=== PATIENT | male | born 1940 | race Caucasian/White ===

== ENCOUNTER 2020-01-09 11:35 | Inpatient (IN) | payer MEDICARE, OTHER ==
[2020-01-04 10:25] LABS: BASOPHILS % 0.3 % (0.0-1.0); EOSINOPHILS # (AUTO) 0.1 (0.0-0.4); EOSINOPHILS % 1.2 % (0.0-6.0); HEMATOCRIT 37.1 % (38.2-49.6); HEMOGLOBIN 12.3 g/dL (14.0-18.0); LYMPHOCYTES # (AUTO) 1.2 (1.0-3.2); LYMPHOCYTES % 17.2 % (18.0-39.1); MEAN CORPUSCULAR HEMOGLOBIN 30.2 pg (28-32); MEAN CORPUSCULAR HGB CONC 33.2 g/dL (31-35); MEAN CORPUSCULAR VOLUME 91.2 fL (81-99); MONOCYTES # (AUTO) 0.8 (0.2-0.8); MONOCYTES % 11.3 % (4.4-11.3); NEUTROPHILS # (AUTO) 4.7 (2.1-6.9); NEUTROPHILS % 69.7 % (38.7-80.0); PLATELET COUNT 230 x10e3/uL (140-360); RED BLOOD COUNT 4.07 x10e6/uL (4.3-5.7); RED CELL DISTRIBUTION WIDTH 13.8 % (11.7-14.4)
[2020-01-04 10:40] LABS: ANION GAP 12.1 mmol/L (8-16); BLOOD UREA NITROGEN 18 mg/dL (7-26); BUN/CREATININE RATIO 22 (6-25); CALCIUM 8.9 mg/dL (8.4-10.2); CARBON DIOXIDE 27 mmol/L (22-29); CHLORIDE 100 mmol/L (98-107); CREATININE, SERUM 0.81 mg/dL (0.72-1.25); EST GLOMERULAR FILTRATION RATE > 60 ML/MIN (60-); GLUCOSE 101 mg/dL (74-118); POTASSIUM 5.1 mmol/L (3.5-5.1); SODIUM 134 mmol/L (136-145)
--- NOTE | 2020-01-04 10:46 | Diagnostic Imaging Report ---
EXAM: CHEST 2 VIEWS DATE: 01/04/2020 9:46 AM INDICATION: Preoperative evaluation COMPARISON: None FINDINGS: The trachea is midline. The lungs are symmetrically expanded without evidence for large focal consolidation, pneumothorax, or significant pleural effusion. The cardiomediastinal silhouette and pulmonary vasculature are within normal limits. Atherosclerotic calcifications are noted within the thoracic aorta. Degenerative changes are noted of the visualized spine. No acute osseous abnormality is identified. IMPRESSION: No acute cardiopulmonary process identified. Signed by: Dr. Chucky Valenzuela MD on 01/04/2020 10:43 AM
[~2020-01-09] VITALS: Ht 180.3 cm; Wt 80.8 kg
[~2020-01-09 11:35] MED LIST: ASPIRIN81 MG PO; FINASTERIDE5 MG PO; FLOMAX0.4 MG PO; LISINOPRIL10 MG PO; LOVASTATIN40 MG PO; MEN'S MULTIVIT1 EACH PO; METFORMIN HCL500 MG PO; PIOGLITAZONE HC45 MG PO
--- OUTSIDE RECORDS SUMMARY | 2020-01-09 11:41 | XMS REPORT ---
[facility] Phone Unavailable Care Team Providers Care Embedded Software Test Engineer Name Role Phone CATHY TURK Unavailable Unavailable Problems This patient has no known problems. Allergies, Adverse Reactions, Alerts This patient has no known allergies or adverse reactions. Medications This patient has no known medications. Results Test Description Test Time Test Comments Text Results Atomic Results Result Comments CHEST 2 VIEWS 2020-01-04 10:41:00 [place] [address] Patient Name: TOBY FERRER MR #: [id number] : 1940 Age/Sex: 79/M Req #: [id number] [facility] Physician: Ordered by: CATHY TURK MD Report #: [id number] Location: OR Room/Bed: Procedure: [id number] DX/CHEST 2 VIEWS Exam Date: 01/04/20 Exam Time: 1000 REPORT STATUS: Signed EXAM: CHEST 2 VIEWS DATE: 01/04/2020 9:46 AM INDICATION: Preoperative evaluation COMPARISON: None FINDINGS: The trachea is midline. The lungs are symmetrically expanded without evidence for large focal consolidation, pneumothorax, or significant pleural effusion. The cardiomediastinal silhouette and pulmonary vasculature are within normal limits. Atherosclerotic calcifications are noted within the thoracic aorta. Degenerative changes are noted of the visualized spine. No acute osseous abnormality is identified. IMPRESSION: No acute cardiopulmonary process identified. Signed by: Dr. Chucky Wolf MD on 01/04/2020 10:43 AM Dictated By: CHUCKY WOLF MD [id number] Transcribed By: RAMIREZ on 01/04/20 104 COPY TO: CATHY TURK MD
[2020-01-09] MEDS ORDERED: CEFTRIAXONE SOD 1 GM/NS 50 ML 50 ML IV ONE (13:31)
[2020-01-09] MEDS ORDERED: GENTAMICIN 80MG/NS 100 ML 100 ML IV ONE (13:31)
[2020-01-09] MEDS ORDERED: IOPAMIDOL 300MG/ML 50ML INFUS..BTL IV ONE (14:35)
[2020-01-09] MEDS ORDERED: B&O 60MG R/S 60 MG SUPP PR ONE (14:35)
[2020-01-09] MEDS ORDERED: LIDOCAINE HCL 2% LOCAL INJ 5 ML SDV VIAL INJ ONE (14:50)
[2020-01-09] MEDS ORDERED: ONDANSETRON HCL INJ 2MG/ML 2ML 2 MG/ML VIAL ONE (14:50)
[2020-01-09] MEDS ORDERED: SEVOFLURANE INHAL SOLN 250 ML PEN BTL ONE (14:50)
[2020-01-09] MEDS ORDERED: PROPOFOL IV EMULSION 10 MG/ML 20 ML VIAL ONE (14:50)
[2020-01-09] MEDS ORDERED: DEXAMETHASONE SOD PHOS INJ 4 MG/ML VIAL ONE (14:50)
[2020-01-09] MEDS ORDERED: CEFTRIAXONE SOD 1 GM VIAL ONE (14:50)
[2020-01-09] MEDS ORDERED: ONDANSETRON HCL INJ 2MG/ML 2ML 2 MG/ML VIAL IV PRN (15:30)
[2020-01-09] MEDS ORDERED: DIPHENHYDRAMINE HCL 25 MG CAP PO PRN (15:30)
[2020-01-09] MEDS ORDERED: ACETAMINOPHEN 1000 MG/100 ML IV PRN (15:30)
[2020-01-09] MEDS ORDERED: ACETAMINOPHEN/CODEINE 300MG - 30MG TAB PO PRN (15:30)
[2020-01-09] MEDS: CEFTRIAXONE SOD 1 GM/NS 50 ML 50 ML IV SCH (15:30)
[2020-01-09] MEDS ORDERED: B&O 60MG R/S 60 MG SUPP PR PRN (15:30)
[2020-01-09] MEDS ORDERED: HYDRALAZINE HCL 20 MG/ML VIAL ONE (17:27)
[2020-01-09] MEDS ORDERED: FENTANYL CITRATE/PF 100MCG/2 ML INJ ONE (17:39)
[2020-01-09 18:43] LABS: BASOPHILS % 0.2 % (0.0-1.0); EOSINOPHILS % 0.1 % (0.0-6.0); HEMATOCRIT 40.7 % (38.2-49.6); HEMOGLOBIN 13.5 g/dL (14.0-18.0); LYMPHOCYTES # (AUTO) 0.4 (1.0-3.2); LYMPHOCYTES % 4.6 % (18.0-39.1); MEAN CORPUSCULAR HEMOGLOBIN 30.3 pg (28-32); MEAN CORPUSCULAR HGB CONC 33.2 g/dL (31-35); MEAN CORPUSCULAR VOLUME 91.3 fL (81-99); MONOCYTES # (AUTO) 0.1 (0.2-0.8); NEUTROPHILS % 93.7 % (38.7-80.0); PLATELET COUNT 236 x10e3/uL (140-360); RED BLOOD COUNT 4.46 x10e6/uL (4.3-5.7); RED CELL DISTRIBUTION WIDTH 13.7 % (11.7-14.4)
[2020-01-09 18:59] LABS: ANION GAP 12.2 mmol/L (8-16); BLOOD UREA NITROGEN 14 mg/dL (7-26); BUN/CREATININE RATIO 17 (6-25); CALCIUM 8.8 mg/dL (8.4-10.2); CARBON DIOXIDE 25 mmol/L (22-29); CHLORIDE 102 mmol/L (98-107); CREATININE, SERUM 0.81 mg/dL (0.72-1.25); EST GLOMERULAR FILTRATION RATE > 60 ML/MIN (60-); GLUCOSE 114 mg/dL (74-118); POTASSIUM 4.2 mmol/L (3.5-5.1); SODIUM 135 mmol/L (136-145)
--- NOTE | 2020-01-09 19:00 | NUR ---
Received the patient in report.aaox3.no resp.distress.no pain voiced.iv to right hand is patent.iv fluid running.on CBI.snacks provided.bed locked and in lowest position.phone and call light within reach.instructed to call for assistance as needed.
[2020-01-09 19:30] VITALS: BP 136/62
[2020-01-09] MEDS: SOD CHL 0.45%/POT CHL 20MEQ 1,000 ML IV SCH (19:37)
[2020-01-09] MEDS: PHENAZOPYRIDINE HCL 100 MG TAB PO SCH (19:49)
[2020-01-09 20:16] VITALS: BP 132/62
[2020-01-09 20:53] VITALS: BP 132/62
[2020-01-09] MEDS ORDERED: DEXTROSE 50% SYRINGE 50 ML IV PRN (21:00)
[2020-01-09] MEDS: INSULIN LISPRO 100 UNIT/1 ML 3ML VIAL SQ SCH (21:15)
--- NOTE | 2020-01-09 21:30 | NUR ---
BLOOD SUGAR 177 NOTIFIED TO .RECEIVED NEW ORDERS.IMPLEMENTED.EDUCATED ABOUT THE SIDE EFFECT OF INSULIN.VERBALIZED UNDERSTANDING.PROVIDED SNACKS.
[2020-01-09 23:50] VITALS: BP 113/57
[2020-01-10] VITALS (7 sets, daily range): BP systolic 112–128; BP diastolic 57–67
[2020-01-10] MEDS: SOD CHL 0.45%/POT CHL 20MEQ 1,000 ML IV SCH (03:51)
[2020-01-10 05:47] LABS: BASOPHILS % 0.1 % (0.0-1.0); EOSINOPHILS % 0.1 % (0.0-6.0); HEMATOCRIT 37.9 % (38.2-49.6); HEMOGLOBIN 12.5 g/dL (14.0-18.0); LYMPHOCYTES # (AUTO) 1.1 (1.0-3.2); MEAN CORPUSCULAR HEMOGLOBIN 30.2 pg (28-32); MEAN CORPUSCULAR VOLUME 91.5 fL (81-99); MONOCYTES # (AUTO) 0.9 (0.2-0.8); MONOCYTES % 8.2 % (4.4-11.3); NEUTROPHILS # (AUTO) 8.3 (2.1-6.9); NEUTROPHILS % 80.1 % (38.7-80.0); PLATELET COUNT 234 x10e3/uL (140-360); RED BLOOD COUNT 4.14 x10e6/uL (4.3-5.7); RED CELL DISTRIBUTION WIDTH 13.8 % (11.7-14.4)
[2020-01-10 06:04] LABS: ANION GAP 11.7 mmol/L (8-16); BLOOD UREA NITROGEN 14 mg/dL (7-26); BUN/CREATININE RATIO 17 (6-25); CALCIUM 8.8 mg/dL (8.4-10.2); CARBON DIOXIDE 25 mmol/L (22-29); CHLORIDE 102 mmol/L (98-107); CREATININE, SERUM 0.83 mg/dL (0.72-1.25); EST GLOMERULAR FILTRATION RATE > 60 ML/MIN (60-); GLUCOSE 116 mg/dL (74-118); POTASSIUM 4.7 mmol/L (3.5-5.1); SODIUM 134 mmol/L (136-145)
--- NOTE | 2020-01-10 06:56 | NUR ---
Bed side shift report given to oncoming Rn.stable condition.no pain voiced.
--- NOTE | 2020-01-10 07:00 | NUR ---
RECEIVED PATIENT AWAKE IN BED NO S/S OF DISTRESS. BED LOW, WHEELS LOCKED, SIDE RAILS X2. CALL LIGHT IN REACH WILL CONTINUE TO MONITOR PATIENT.
[2020-01-10] MEDS: INSULIN LISPRO 100 UNIT/1 ML 3ML VIAL SQ SCH ×4 (07:30→20:24)
[2020-01-10] MEDS: PHENAZOPYRIDINE HCL 100 MG TAB PO SCH ×3 (08:18→17:30)
[2020-01-10] MEDS: FINASTERIDE 5 MG TAB PO SCH (09:39)
[2020-01-10] MEDS: METFORMIN HCL 500 MG TAB PO SCH ×2 (09:39→16:40)
[2020-01-10] MEDS: LISINOPRIL 10 MG TAB PO SCH (09:39)
[2020-01-10] MEDS: PIOGLITAZONE HCL 15 MG TAB PO SCH (09:39)
[2020-01-10] MEDS: TAMSULOSIN HCL 0.4 MG CAP PO SCH (09:39)
[2020-01-10] MEDS: MULTIVITAMINS/MINERALS TAB PO SCH (10:34)
--- NOTE | 2020-01-10 14:15 | NUR ---
Visit made by the Spiritual Care Department Pastoral Visitor, Wendy Jo. PV provided pastoral presence, hospitality, prayer, and supportive listening. Pastoral Visitor informed pt/family of the scope of Patient Support Representative Services and availability. GRACE PEREZ Billing Typist Spiritual Care Department O: [phone]
--- NOTE | 2020-01-10 14:28 | NUR ---
Ambulated patient in hallway with walker. Non-skid socks in place. Steady gait present. Patient back to bed. Call light in reach will continue to monitor patient.
[2020-01-10] MEDS: CEFTRIAXONE SOD 1 GM/NS 50 ML 50 ML IV SCH (15:28)
--- NOTE | 2020-01-10 19:21 | NUR ---
Received bedside report from day nurse. Patient awake and resting in bed, no s/s of distress or c/o pain at this time. CBI and all safety measures in place. Will continue to monitor.
[2020-01-10] MEDS ORDERED: SIMVASTATIN 40 MG TAB PO SCH (21:00)
[2020-01-11] VITALS: BP 109/56
[2020-01-11 04:10] VITALS: BP 118/56
[2020-01-11 05:54] LABS: BASOPHILS % 0.1 % (0.0-1.0); EOSINOPHILS # (AUTO) 0.1 (0.0-0.4); EOSINOPHILS % 1.6 % (0.0-6.0); HEMATOCRIT 37.3 % (38.2-49.6); HEMOGLOBIN 12.5 g/dL (14.0-18.0); LYMPHOCYTES # (AUTO) 1.2 (1.0-3.2); MEAN CORPUSCULAR HEMOGLOBIN 30.3 pg (28-32); MEAN CORPUSCULAR HGB CONC 33.5 g/dL (31-35); MEAN CORPUSCULAR VOLUME 90.3 fL (81-99); MONOCYTES # (AUTO) 0.9 (0.2-0.8); MONOCYTES % 12.2 % (4.4-11.3); NEUTROPHILS # (AUTO) 5.4 (2.1-6.9); NEUTROPHILS % 69.8 % (38.7-80.0); PLATELET COUNT 205 x10e3/uL (140-360); RED BLOOD COUNT 4.13 x10e6/uL (4.3-5.7); RED CELL DISTRIBUTION WIDTH 13.9 % (11.7-14.4)
[2020-01-11 06:19] LABS: ANION GAP 10.8 mmol/L (8-16); BLOOD UREA NITROGEN 11 mg/dL (7-26); BUN/CREATININE RATIO 14 (6-25); CALCIUM 8.5 mg/dL (8.4-10.2); CARBON DIOXIDE 26 mmol/L (22-29); CHLORIDE 102 mmol/L (98-107); CREATININE, SERUM 0.78 mg/dL (0.72-1.25); EST GLOMERULAR FILTRATION RATE > 60 ML/MIN (60-); GLUCOSE 104 mg/dL (74-118); POTASSIUM 4.8 mmol/L (3.5-5.1); SODIUM 134 mmol/L (136-145)
--- NOTE | 2020-01-11 07:01 | NUR ---
Bedside report given to day nurse. Patient awake and resting in bed, no s/s of distress or c/o pain at this time. All safety measures in place.
[2020-01-11 07:21] VITALS: BP 136/66
[2020-01-11] MEDS: INSULIN LISPRO 100 UNIT/1 ML 3ML VIAL SQ SCH ×2 (07:30→11:30)
[2020-01-11 10:00] VITALS: BP 136/66
[2020-01-11] MEDS: PIOGLITAZONE HCL 15 MG TAB PO SCH (10:46)
[2020-01-11] MEDS: TAMSULOSIN HCL 0.4 MG CAP PO SCH (10:46)
[2020-01-11] MEDS: LISINOPRIL 10 MG TAB PO SCH (10:46)
[2020-01-11] MEDS: MULTIVITAMINS/MINERALS TAB PO SCH (10:46)
[2020-01-11] MEDS: FINASTERIDE 5 MG TAB PO SCH (10:46)
[2020-01-11] MEDS: METFORMIN HCL 500 MG TAB PO SCH (10:46)
[2020-01-11] MEDS: PHENAZOPYRIDINE HCL 100 MG TAB PO SCH ×2 (10:46→15:27)
[2020-01-11 11:47] VITALS: BP 110/63
--- NOTE | 2020-01-11 15:00 | NUR ---
INSTRUCTED PT RE: CHANGE BETWEEN LEG BAG AND BEDSIDE BAG, PT DEMONSTRATED BACK. EDUCATION GIVEN RE: CHOW CARE
--- NOTE | 2020-02-05 20:42 | Operative Report ---
DATE OF PROCEDURE: 01/09/2020 SURGEON: Diego Bautista MD PREOPERATIVE DIAGNOSES: 1. Obstructive benign prostatic hypertrophy. 2. Microscopic hematuria. POSTOPERATIVE DIAGNOSES: 1. Obstructive benign prostatic hypertrophy. 2. Microscopic hematuria. 3. Urethral stricture disease. 4. Bladder neck contracture. OPERATIONS PERFORMED: 1. Cystourethroscopy with calibration and dilation of urethral stricture disease (separate procedure performed for the stricture). 2. Cystourethroscopy with transurethral resection of the bladder neck contracture (separate procedure performed for the bladder neck contracture). 3. Cystourethroscopy with bilateral ureteral catheterization and retrograde ureteropyelography (separate procedure performed for the microhematuria). 4. Cystourethroscopy with transurethral resection of the prostate utilizing the PlasmaBand electrode. ANESTHESIA: General. COMPLICATIONS: None. CLINICAL SUMMARY: Quentin Triplett is an 79-year-old man, who has had prior procedures on his prostate by prior urologists. He sounds that he may have had some sort of transurethral minimally invasive procedure in approximately 2018. This was followed by another procedure on the patient's prostate. The patient has severe symptomatology and elected to proceed with management. He is aware of the risks of bleeding, infection, injury to adjacent structures, need for further procedures, and elected to proceed. OPERATIVE PROCEDURE IN DETAIL: Informed consent was verified. Quentin Triplett was properly identified, taken to the operating room, and placed on the cystoscopy table in supine position. Anesthesia was uneventfully begun. The patient was then carefully and gently repositioned in dorsal lithotomy position with all pressure points well padded. His genitalia were prepared and draped in usual sterile fashion. The cystoscope sheath with the visual obturator in place was atraumatically inserted in the patient's urethra, it was guided normal distal urethra to the bulbar region, where there was a short, but rather small urethral stricture. This stricture probably calibrated 12-Maltese in size at the most. We gently dilated across the stricture with the visual obturator in place, went into the prostate bed, which was status post some sort of procedure. There was residual prostatic tissue left and there was a bladder neck contracture. We popped across the bladder neck into the patient's bladder, where panendoscopy revealed trabeculations, but no suspicious lesions. There were no tumors. There were no stones. A ureteral catheter was used to cannulate each ureter and retrograde ureteropyelograms were performed. Interpretation of retrograde ureteropyelography contrast was instilled in retrograde fashion bilaterally. There were no tumors, no stones, and no diverticula. Unobstructed drainage was observed bilaterally fluoroscopically. The dilation of urethra was further carried out with Ramez sounds. We then placed the resectoscope sheath atraumatically into the patient's urethra and guided under direct vision into the prostatic urethra. We then performed transurethral resection of bladder neck contracture down through the entire thickness of the scar. Once we opened up the bladder neck, we proceeded with performing transurethral resection of the prostate from the bladder neck to maneuver, past the verumontanum and down the surgical capsule. Pinpoint electrocautery was utilized to achieve hemostasis. All chips were evacuated from the bladder. This was verified endoscopically. The resectoscope was withdrawn and Kaur catheter was then placed. It was irrigated to and fro to ensure it worked properly. The patient was then uneventfully reversed from anesthesia and taken to recovery room in stable condition. There were no complications to the procedure. The patient tolerated the procedure well. We will proceed with routine postoperative care and we will bring the patient back to the office in a couple of weeks to remove his Kaur catheter. Diego Bautista MD [place]/MODL /[id number] cc: Ruben Posada
== END 2020-01-11 15:30 | disposition home or self-care (01) | DRG 713 ==
LOC: OR 11:35 → UNDOADMIN 15:22 → PACU V 15:22 → OBSVTOIN 17:53 → MED/SURG 17:53
PROVIDERS: ADMIT Urology; ATTEND Urology
PROC: BT141ZZ Fluoroscopy of Kidneys, Ureters and Bladder using Low Osmolar Contrast (ICD-10-PCS; 2020-01-09)
PROC: 0T788ZZ Dilation of Bilateral Ureters, Via Natural or Artificial Opening Endoscopic (ICD-10-PCS; 2020-01-09)
PROC: 0VB08ZZ Excision of Prostate, Via Natural or Artificial Opening Endoscopic (ICD-10-PCS; principal; 2020-01-09 14:30)
PROC: 0TBC8ZZ Excision of Bladder Neck, Via Natural or Artificial Opening Endoscopic (ICD-10-PCS; 2020-01-09 14:30)
PROC: 0T7D8ZZ Dilation of Urethra, Via Natural or Artificial Opening Endoscopic (ICD-10-PCS; 2020-01-09 14:30)
DX: N40.1 Benign prostatic hyperplasia with lower urinary tract symptoms (principal); E87.1 Hypo-osmolality and hyponatremia; R33.8 Other retention of urine; E11.9 Type 2 diabetes mellitus without complications; E78.5 Hyperlipidemia, unspecified; I10 Essential (primary) hypertension; R31.9 Hematuria, unspecified; N52.9 Male erectile dysfunction, unspecified; N35.919 Unspecified urethral stricture, male, unspecified site; N39.41 Urge incontinence; R39.14 Feeling of incomplete bladder emptying; R35.1 Nocturia
CPT/HCPCS: 36415; 71046; 74420; 80048; 82948; 83735; 85025; 87086; 88305; C1758; J0360; J0696; J1100; J1580; J2001; J2405; J3010

== ENCOUNTER 2021-04-25 01:40 | Emergency (ER) | payer MEDICARE, OTHER ==
[~2021-04-25] VITALS: Ht 180.3 cm; Wt 80.7 kg
[2021-04-25] MEDS ORDERED: SODIUM CHLORIDE 0.9% 1000ML 2,000 ML ONE (02:11)
[2021-04-25 02:15] LABS: CLARITY,URINE CLEAR (CLEAR); COLOR,URINE YELLOW (YELLOW); KETONES,URINE NEGATIVE (NEGATIVE); LEUKOCYTE ESTERASE ,URINE NEGATIVE (NEGATIVE); NITRITE,URINE NEGATIVE (NEGATIVE); PROTEIN,URINE DIPSTICK NEGATIVE (NEGATIVE); URINE UROBILINOGEN 0.2 mg/dL (0.2 - 1)
[2021-04-25 02:25] LABS: BACTERIA,URINE FEW /HPF; EPITHELIAL CELLS,URINE FEW /LPF; RBC,URINE 21-50 /HPF (0-5); WBC,URINE (MAN) 0-5 /HPF (0-5)
[2021-04-25 02:26] LABS: OTHER CRYSTALS,URINE PRESENT
[2021-04-25 02:30] LABS: BASOPHILS % 0.2 % (0.0-1.0); EOSINOPHILS # (AUTO) 0.1 (0.0-0.4); EOSINOPHILS % 1.9 % (0.0-6.0); HEMATOCRIT 33.7 % (38.2-49.6); HEMOGLOBIN 11.3 g/dL (14.0-18.0); LYMPHOCYTES # (AUTO) 1.8 (1.0-3.2); LYMPHOCYTES % 34.4 % (18.0-39.1); MEAN CORPUSCULAR HEMOGLOBIN 31.7 pg (28-32); MEAN CORPUSCULAR HGB CONC 33.5 g/dL (31-35); MEAN CORPUSCULAR VOLUME 94.7 fL (81-99); MONOCYTES # (AUTO) 0.5 (0.2-0.8); MONOCYTES % 9.6 % (4.4-11.3); NEUTROPHILS # (AUTO) 2.9 (2.1-6.9); NEUTROPHILS % 53.5 % (38.7-80.0); PLATELET COUNT 185 x10e3/uL (140-360); RED BLOOD COUNT 3.56 x10e6/uL (4.3-5.7); RED CELL DISTRIBUTION WIDTH 13.4 % (11.7-14.4)
[2021-04-25] MEDS ORDERED: SODIUM CHLORIDE 0.9% 1000ML 1,000 ML ONE (02:34)
[2021-04-25] MEDS ORDERED: IOPAMIDOL 370 MG/ML 200 ML INFUS..BTL INJ ONE (02:34)
[2021-04-25] MEDS ORDERED: SODIUM CHLORIDE 0.9% 100 ML ONE (02:34)
[2021-04-25 02:45] LABS: ALANINE AMINOTRANSFERASE 8 IU/L (0-55); ALBUMIN 3.4 g/dL (3.5-5.0); ALBUMIN/GLOBULIN RATIO 1.2 (0.8-2.0); ALKALINE PHOSPHATASE 43 IU/L (40-150); ANION GAP 14.7 mmol/L (8-16); BLOOD UREA NITROGEN 15 mg/dL (7-26); BUN/CREATININE RATIO 17 (6-25); CALCIUM 8.1 mg/dL (8.4-10.2); CARBON DIOXIDE 21 mmol/L (22-29); CHLORIDE 102 mmol/L (98-107); CREATINE KINASE 54 IU/L (30-200); CREATININE, SERUM 0.86 mg/dL (0.72-1.25); EST GLOMERULAR FILTRATION RATE > 60 ML/MIN (60-); GLUCOSE 175 mg/dL (74-118); POTASSIUM 3.7 mmol/L (3.5-5.1); SODIUM 134 mmol/L (136-145)
[2021-04-25] MEDS ORDERED: DIPHENHYDRAMINE HCL INJ 50 MG/ML VIAL ONE (02:50)
[2021-04-25] MEDS ORDERED: METHYLPREDNISOLONE SOD SUCC 125 MG/2ML VIAL ONE (02:50)
[2021-04-25] MEDS ORDERED: NOREPINEPHRINE 8 MG/D5W 250 ML 250 ML ONE (03:08)
[2021-04-25] MEDS ORDERED: DEXTROSE 5% 100ML 100 ML IV ONE (03:31)
[2021-04-25] MEDS ORDERED: VASOPRESSIN INJ 20 UNIT/ML VIAL ONE (03:31)
[2021-04-25] MEDS ORDERED: FENTANYL CITRATE/PF 100MCG/2 ML INJ ONE (03:41)
[2021-04-25] MEDS ORDERED: ATROPINE SULFATE 0.1 MG/ML 10ML SYR ONE ×2 (04:07→12:45)
[2021-04-25] MEDS ORDERED: EPINEPHRINE HCL 1:1000 1ML 1 MG/ML AMP ONE (04:08)
[2021-04-25] MEDS ORDERED: SODIUM CHLORIDE 0.9% 250ML 250 ML ONE (04:09)
[2021-04-25] MEDS ORDERED: FENTANYL CITRATE/PF 100MCG/2 ML INJ IV ONE (06:15)
[2021-04-25] MEDS ORDERED: METHYLPREDNISOLONE SOD SUCC 125 MG/2ML VIAL IV ONE (06:15)
[2021-04-25] MEDS ORDERED: VASOPRESSIN 60 UNIT in DEXTROSE 5% 50ML 57 ML IV SCH (06:15)
[2021-04-25] MEDS ORDERED: DIPHENHYDRAMINE HCL INJ 50 MG/ML VIAL IV ONE (06:15)
[2021-04-25] MEDS ORDERED: NOREPINEPHRINE 8 MG/D5W 250 ML 250 ML IV SCH (06:15)
[2021-04-25 08:31] VITALS: BP 0/0
[2021-04-25] MEDS ORDERED: EPINEPHRINE HCL SYRINGE ONE (12:45)
[2021-04-25] MEDS ORDERED: SODIUM BICARBONATE 8.4% INJ 50 ML SYR ONE (12:45)
[2021-04-25] MEDS ORDERED: ETOMIDATE 2 MG/ML 10 ML INJ IV ONE (12:50)
[2021-04-25] MEDS ORDERED: SUCCINYLCHOLINE CHLORIDE 20 MG/ML 10ML VIAL ONE (12:50)
== END 2021-04-25 08:30 | disposition expired ==
LOC: ER 01:55
DX: R10.30 Lower abdominal pain, unspecified (principal); I71.3 Abdominal aortic aneurysm, ruptured; E11.65 Type 2 diabetes mellitus with hyperglycemia; I10 Essential (primary) hypertension; K21.9 Gastro-esophageal reflux disease without esophagitis; Z95.5 Presence of coronary angioplasty implant and graft
CPT/HCPCS: 36415; 70450; 71275; 74174; 80053; 81001; 82550; 82553; 82948; 84484; 85025; 86850; 86900; 86920; 93005; 94002; 99285; J0171; J0330; J1200; J2930; J3010; J7030; J7050 ×2; P9016; Q9967